=== PATIENT | female | born 1945 | race Caucasian/White ===

== ENCOUNTER 2018-09-19 17:35 | Emergency (ER) | payer SELFPAY ==
[~2018-09-19] VITALS: Ht 152.4 cm; Wt 64.9 kg
[2018-09-19 17:52] VITALS: Ht 152.4 cm; Wt 64.9 kg
[2018-09-20 00:55] VITALS: BP 177/81
== END 2018-09-20 00:55 | disposition home or self-care (01) ==
LOC: ED 17:35
DX: S13.4XXA Sprain of ligaments of cervical spine, initial encounter (principal); S70.11XA Contusion of right thigh, initial encounter; M54.9 Dorsalgia, unspecified; I10 Essential (primary) hypertension; E78.00 Pure hypercholesterolemia, unspecified; M89.9 Disorder of bone, unspecified; Z90.49 Acquired absence of other specified parts of digestive tract; W01.0XXA Fall on same level from slipping, tripping and stumbling without subsequent striking against object, initial encounter; Y93.89 Activity, other specified; Y92.512 Supermarket, store or market as the place of occurrence of the external cause; Y99.8 Other external cause status